=== PATIENT | female | born 1965 | race Caucasian/White ===

== ENCOUNTER → 2016-08-02 16:40 | Outpatient (CLI) | payer MEDICARE ==
[2013-01-09 09:21] VITALS: BMI 43.8
[~2016-08-02 16:40] MED LIST: ASPIRIN 81 MG E81 MG PO; COREG6.25 MG PO; COVERA-HS240 MG PO; EFFIENT10 MG PO; GEODON40 MG PO; GLUCOPHAGE500 MG PO; LANTUS SOL100 UNIT/1 SQ; LISINOPRIL10 MG PO; NEURONTIN600 MG PO; PLAVIX75 MG PO; PRAVACHOL40 MG PO; RESTORIL15 MG PO; TRICOR145 MG PO; XANAX0.5 MG; ZANAFLEX4 MG PO; ZOLOFT50 MG PO
== END | disposition home or self-care (01) ==
LOC: D.MAMMO 16:00
DX: Z12.31 Encounter for screening mammogram for malignant neoplasm of breast (principal)

== ENCOUNTER 2018-01-09 17:04 | Emergency (ER) | payer MEDICARE ==
[~2018-01-09] VITALS: Ht 154.9 cm; Wt 110.0 kg
[2018-01-09 17:11] VITALS: Ht 154.9 cm; Wt 110.0 kg
[2018-01-09 19:00] VITALS: BP 113/65
== END 2018-01-09 18:43 | disposition home or self-care (01) ==
LOC: D.ER 17:04
DX: F31.9 Bipolar disorder, unspecified (principal); E11.9 Type 2 diabetes mellitus without complications; I10 Essential (primary) hypertension; F17.200 Nicotine dependence, unspecified, uncomplicated

== ENCOUNTER 2018-01-11 12:42 | Emergency (ER) | payer MEDICARE ==
[~2018-01-11] VITALS: Ht 154.9 cm; Wt 110.0 kg
[2018-01-11 13:20] VITALS: BP 132/75; Ht 154.9 cm; Wt 110.0 kg
[2018-01-11 14:07] LABS: BASOPHILS 0.4 % (0-2); HEMATOCRIT 42.3 % (36.0-48.0); HEMOGLOBIN 14.7 g/dL (12-16); IMMATURE GRANULOCYTES 0.4 % (0-5); LYMPHOCYTES 19.3 % (15-50); MCHC 34.8 g/dL (31.0-37.0); MEAN PLATELET VOLUME 9.8 fL (7.4-10.4); NEUTROPHILS 71.9 % (40-80); PLATELET COUNT 229 10x3/uL (130-400); WBC 11.3 10x3/uL (4.8-10.8)
[2018-01-11 14:16] LABS: APPEARANCE CLEAR (CLEAR); BILIRUBIN NEGATIVE (NEGATIVE); COLOR YELLOW (YELLOW); GLUCOSE NEGATIVE (NEGATIVE); KETONE NEGATIVE (NEGATIVE); NITRITE NEGATIVE (NEGATIVE); PROTEIN NEGATIVE (NEGATIVE); UROBILINOGEN NORMAL (NORMAL)
[2018-01-11 14:22] LABS: ALBUMIN 3.7 g/dL (3.4-5.0); ANION GAP 16.9 mmol/L (8-16); BILIRUBIN - TOTAL 0.29 mg/dL (0.2-1.3); CALCIUM 8.8 mg/dL (8.5-10.1); CARBON DIOXIDE 21.5 mmol/L (21.0-32.0); CREATININE - SERUM 2.1 mg/dL (0.6-1.3); POTASSIUM - SERUM 5.4 mmol/L (3.5-5.1); PROTEIN - SERUM 7.5 g/dL (6.4-8.2)
[2018-01-11 14:24] LABS: UDS - AMPHET NEGATIVE QUAL (NEGATIVE); UDS - BARB NEGATIVE QUAL (NEGATIVE); UDS - BENZO POSITIVE QUAL (NEGATIVE); UDS - COCAINE NEGATIVE QUAL (NEGATIVE); UDS - OPIATE NEGATIVE QUAL (NEGATIVE); UDS - PCP NEGATIVE QUAL (NEGATIVE); UDS - THC NEGATIVE QUAL (NEGATIVE)
[2018-01-11 14:32] LABS: THYROID STIMULATING HORMONE 0.69 uIU/mL (0.36-3.74)
== END 2018-01-11 17:47 | disposition left against medical advice (07) ==
LOC: D.ER 12:42
PROVIDERS: Family Medicine
DX: F23 Brief psychotic disorder (principal); Z86.73 Personal history of transient ischemic attack (TIA), and cerebral infarction without residual deficits; E11.9 Type 2 diabetes mellitus without complications; I11.0 Hypertensive heart disease with heart failure; I50.9 Heart failure, unspecified; F31.9 Bipolar disorder, unspecified; F17.200 Nicotine dependence, unspecified, uncomplicated

== ENCOUNTER 2018-07-15 11:00 | Outpatient (CLI) | payer MEDICARE ==
[2018-01-11 13:20] VITALS: BMI 45.8
== END 2018-07-15 12:00 | disposition home or self-care (01) ==
LOC: D.MAMMO 11:00
PROVIDERS: ATTEND Family Medicine
DX: R92.8 Other abnormal and inconclusive findings on diagnostic imaging of breast (principal)

== ENCOUNTER 2018-10-14 23:32 | Emergency (ER) | payer MEDICARE ==
[~2018-10-14] VITALS: Ht 154.9 cm; Wt 107.3 kg
[2018-10-14 23:43] VITALS: Ht 154.9 cm; Wt 107.3 kg
[2018-10-14] MEDS ORDERED: LIPITOR40 MG PO (23:45)
[2018-10-14] MEDS ORDERED: BRILINTA90 MG PO (23:46)
[2018-10-14] MEDS ORDERED: TRADJENTA5 MG PO (23:46)
--- NOTE | 2018-10-15 00:54 | NUR ---
DR WALSH NOTIFIED AND REVIEWED PT BEHAVIOR AND ASSESSMENT RESULTS. PT IS A LOW RISK PER DOCTOR WALSH. DR WALSH STATED TO GIVE RESOURCES TO PT AT TIME OF DISCHARGE. NO FURUTHER ORDERS AT THIS TIME. RESOURCES REVIEWED WITH PT AND SHE VERBALIZED UNDERSTANDING.
[2018-10-15 01:05] VITALS: BP 113/49
== END 2018-10-15 01:36 | disposition home or self-care (01) ==
LOC: D.ER 23:32
DX: F31.89 Other bipolar disorder (principal)

== ENCOUNTER 2019-02-28 08:27 | Emergency (ER) | payer MEDICARE ==
[~2019-02-28] VITALS: Ht 154.9 cm; Wt 107.3 kg
[~2019-02-28 08:27] MED LIST changes: +BRILINTA90 MG PO; +LIPITOR40 MG PO; +TRADJENTA5 MG PO
[2019-02-28 08:32] VITALS: Ht 154.9 cm; Wt 107.3 kg
[2019-02-28 09:29] VITALS: BP 131/57
== END 2019-02-28 09:30 | disposition home or self-care (01) ==
LOC: D.ER 08:27
DX: F31.9 Bipolar disorder, unspecified (principal); E11.9 Type 2 diabetes mellitus without complications; I11.0 Hypertensive heart disease with heart failure; I50.9 Heart failure, unspecified; F17.210 Nicotine dependence, cigarettes, uncomplicated